=== PATIENT | male | born 2000 | race Caucasian/White ===

== ENCOUNTER 2022-08-17 11:51 | Emergency (ER) | payer OTHER, SELFPAY ==
[2022-08-17 11:53] VITALS: BP 142/79; PULSE 101; RESP 22; TEMP 36.6; O2SAT 100; BMI 39.0
--- NOTE | 2022-08-17 12:00 | ECG_ITS ---
[facility] Test Date: 2022-08-17 Pat Name: Bobby Cabrera Department: Room: Gender: Male [employer] Specialist: : 2000 Requested By: Chris Dodge Order Number: [id number] Halle MD: Aniceto Davis M.D. Measurements Intervals Ralls Rate: 79 P: 26 OR: 161 QRS: 71 QRSD: 106 T: 42 QT: 371 QTc: 428 Interpretive Statements SINUS RHYTHM WITH SINUS ARRHYTHMIA INTERPRETATION BASED ON A DEFAULT AGE OF 40 YEARS No previous ECG available for comparison Electronically Signed On 08-17-2022 18:23:13 CDT by Aniceto Davis M.D. [id number]
--- NOTE | 2022-08-17 13:19 | ED_ITS ---
HPI - Anxiety General: Chief Complaint: Anxiety Stated Complaint: blacked out Time Seen by Provider: 08/17/22 12:40 History of Present Illness: 22-year-old male presenting today with anxiety attack. Patient states he was driving when he started to feel some indigestion. This caused him to start to get extremely anxious. Causing him to hyperventilate. Resulting in numbness and tingling in both of his fingers lower extremities and a feeling as if he was going to have a heart attack. Notes he started to see stars. And then was able to gain control of his breathing. Has a history of panic attacks in the past. He notes only minor abdominal pain at this point. Feels as if he has to use the restroom. He denies fevers or chills. He denies nausea or vomiting. He denies diarrhea. He denies continued chest pain or shortness of breath. He denies any other complaints or concerns. Review of Systems General: Reports: 10 or more systems reviewed and unremarkable except in HPI and below Physical Exam Const: COMMON NORMALS: no acute distress, patient oriented x3 and alert GEN ERAL APPEARANCE: cooperative ORIENTATION/CONSCIOUSNESS: Yes awake, Yes oriented to person, Yes oriented to place and Yes oriented to time HENMT: COMMON NORMALS: normocephalic, atraumatic, external ears normal, Normal external nose present and moist oral mucous membranes HEAD & SCALP: normal to inspection, normocephalic and atraumatic NOSE: Normal external nose present GENERAL EAR: hearing grossly impaired EXTERNAL EAR: Yes external ears normal Eye: COMMON NORMALS: Equal, round and reactive pupils present, EOMs intact bilaterally, conjunctivae normal and no scleral icterus GENERAL EYE: appearance normal, both eyes and all related structures EYELID: eyelids normal CONJUNCTIVA: Yes conjunctivae normal SCLERA: sclerae normal PUPIL: Yes Equal, round and reactive pupils present Neck/C-Spine: COMMON NORMALS: full ROM, supple and no JVD GENERAL: Yes normal visual inspection Lymph: LYMPHATIC: no lymphadenopathy noted and no lymphedema noted Chest: COMMONS NORMALS: normal inspection of the chest Resp: COMMON NORMALS: normal respiratory effort, No retractions and No use of accessory muscles Cardio: COMMON NORMALS: no JVD, regular rate and regular rhythm RATE: regular rate RHYTHM: regular rhythm GI: COMMON NORMALS: Normal to inspection, nondistended, normoactive bowel sounds present : COMMON NORMALS: Yes no CVA tenderness BLADDER/KIDNEY EXAM: Yes no CVA tenderness Back/Pelvis: COMMON NORMALS: no CVA tenderness and thoracic and lumbar spine normal to inspection Extremity: COMMON NORMALS: normal to inspection, full ROM and capillary refill normal GENERAL: Yes normal exam except as noted Neuro: COMMON NORMALS: patient oriented x3, CN's II-XII intact bilaterally, moves all extremities, no focal motor deficits, no sensory deficits noted and gait normal SENSORIUM/ORIENTATION: Yes alert, Yes oriented to person, Yes oriented to place and Yes oriented to time Psych: COMMON NORMALS: mental status grossly normal, Normal thought process present, cooperative and normal affect THOUGHT PROCESS: Normal thought process present Skin: COMMON NORMALS: no rashes or lesions noted and no wounds GENERAL SKIN EXAM: no rashes or lesions noted Course Vital Signs: Vital signs: Vital Signs Temperature 97.9 F 08/17/22 11:53 Pulse Rate 101 H 08/17/22 11:53 Respiratory Rate 22 H 08/17/22 11:53 Blood Pressure 142/79 08/17/22 11:53 Pulse Oximetry 100 08/17/22 11:53 Oxygen Delivery Me thod 08/17/22 11:53 MDM - Anxiety Medical Decision Making 22-year-old male presenting today with suspected panic attack. Vitals within normal limits now. Abdominal exam is benign. Patient notes he feels more back to baseline. Low suspicion for acute life-threatening pathology at this time. Patient was given strict return precautions. Patient was given strict return precautions and recommended routine outpatient follow-up. Discharge Plan Discharge Patient Disposition: Home Clinical Impression: Hyperventilation Condition: Stable Discharge Orders: Discharge ED (Routine); Ordered 08/17/22 Ordered By: Roque Topete Referrals: Norbert Del Rosario [Primary Care Provider] - Patient Instructions: Hyperventilation (ED) Coding Level of Care Code ED [facility]
[2022-08-17 13:22] VITALS: BP 125/78; PULSE 88; RESP 21; O2SAT 99
== END 2022-08-17 13:41 | disposition home or self-care (01) ==
PROVIDERS: Emergency Provider Emergency Medicine; PCP Family Medicine
DX: R06.4 Hyperventilation (principal)
CPT/HCPCS: 93005; 99283